=== PATIENT | male | born 2000 | race Caucasian/White ===

== ENCOUNTER 2021-10-20 06:24 | Outpatient (CLI) | payer MEDICAID, SELFPAY ==
--- NOTE | 2021-10-20 | US_ITS ---
WS: [id number] ULTRASOUND SOFT TISSUES RIGHT neck. HISTORY: NECK LYMPH NODE COMPARISON: None available. TECHNIQUE: 2-D and color Doppler imaging is submitted. Palpable area in the RIGHT neck inferior to the ear corresponds to a benign-appearing lymph node gabrielle uring 11 x 8 x 8 mm. No increased vascularity. No additional lymph nodes are identified. US/US soft tissue/extremity [id number] IMPRESSION: Benign-appearing lymph node in the RIGHT neck just below the ear.
== END 2021-10-20 06:25 | disposition home or self-care (01) ==
PROVIDERS: PCP Physician Assistant; Visit Provider Nurse Practitioner
DX: R59.0 Localized enlarged lymph nodes (principal)
CPT/HCPCS: 76882